=== PATIENT | female | born 1960 | race Hispanic/Latino ===

== ENCOUNTER 2024-10-16 05:25 | Observation (INO) | payer OTHER ==
[2024-10-14 15:45] LABS: BASOPHILS % 0.6 % (0.0-1.0); EOSINOPHILS % 2.0 % (0.0-6.0); LYMPHOCYTES % 21.4 % (18.0-39.1); MONOCYTES % 9.7 % (4.4-11.3); NEUTROPHILS % 66.1 % (38.7-80.0); RED CELL DISTRIBUTION WIDTH 12.7 % (11.7-14.4)
[~2024-10-16 05:25] MED LIST: AMLODIPINE BESY10 MG PO; HYDROXYZINE HCL10 MG PO; LEXAPRO20 MG PO; LOSARTAN POTASS25 MG PO; METOPROLOL TAR100 MG PO; SIMVASTATIN20 MG PO
[2024-10-16] MEDS: LACTATED RINGER'S 1,000 ML ONE (06:15)
[2024-10-16] MEDS: CEFAZOLIN SODIUM 2 GM ONE (06:15)
[2024-10-16] MEDS ORDERED: LIDOCAINE HCL 2% LOCAL INJ 5 ML SDV VIAL INJ ONE (06:41)
[2024-10-16] MEDS ORDERED: FENTANYL CITRATE/PF 100MCG/2 ML INJ ONE ×2 (06:41→06:44)
[2024-10-16] MEDS ORDERED: PROPOFOL IV EMULSION 10 MG/ML 20 ML VIAL ONE (06:41)
[2024-10-16] MEDS ORDERED: SEVOFLURANE INHAL SOLN 250 ML PEN BTL ONE (06:41)
[2024-10-16] MEDS ORDERED: ROCURONIUM BROMIDE 1 ML IV ONE (06:41)
[2024-10-16] MEDS ORDERED: ACETAMINOPHEN 1000 MG/100 ML 100 ML IV ONE (06:41)
[2024-10-16] MEDS ORDERED: BUPIVACAINE 0.25% 30ML SDV ONE (06:44)
[2024-10-16] MEDS ORDERED: MIDAZOLAM HCL 2 MG/2 ML VIAL ONE (06:45)
[2024-10-16] MEDS ORDERED: HYDROCODONE/APAP 7.5MG-325MG 1 EA TAB PO PRN (07:00)
[2024-10-16] MEDS ORDERED: DOCUSATE SODIUM 100 MG CAP PO PRN ×2 (07:00→14:15)
[2024-10-16] MEDS ORDERED: ONDANSETRON HCL INJ 2MG/ML 2ML 2 MG/ML VIAL IV PRN ×2 (07:00→14:15)
[2024-10-16] MEDS ORDERED: FAMOTIDINE 20 MG/2 ML VIAL IV ONE (07:09)
[2024-10-16] MEDS ORDERED: DEXAMETHASONE SOD PHOS INJ 4 MG/ML SDV ONE (07:09)
[2024-10-16] MEDS ORDERED: EPHEDRINE SULFATE INJ 50 MG/ML VIAL ONE (07:14)
[2024-10-16] MEDS ORDERED: ROPIVACAINE/EPI/CLONIDINE/KET 50 ML SYRINGE INJ ONE (08:00)
[2024-10-16] MEDS ORDERED: SUGAMMADEX SODIUM 200 MG/2 ML VIAL IV ONE (08:02)
[2024-10-16] MEDS ORDERED: LACTATED RINGER'S 1,000 ML ONE (08:03)
[2024-10-16] MEDS: HYDROMORPHONE 1MG/1ML INJ ONE (09:13)
[2024-10-16] MEDS: HYDROCODONE/APAP 7.5MG-325MG 1 EA TAB ONE (10:00)
[2024-10-16] MEDS ORDERED: BENZONATATE 100 MG CAP PO PRN (14:15)
[2024-10-16] MEDS ORDERED: SIMETHICONE 80 MG CHEW PO PRN (14:15)
[2024-10-16] MEDS ORDERED: DIPHENHYDRAMINE HCL 25 MG CAP PO PRN (14:15)
[2024-10-16] MEDS ORDERED: ACETAMINOPHEN 325 MG TAB PO PRN (14:15)
[2024-10-16] MEDS ORDERED: POTASSIUM CHLORIDE 20 MEQ TAB CR PO PRN (14:15)
[2024-10-16] MEDS ORDERED: HYDRALAZINE HCL 20 MG/ML VIAL IV PRN (14:15)
[2024-10-16] MEDS ORDERED: ALBUTEROL/IPRATROPIUM 3 ML NEB NEB PRN (14:15)
[2024-10-16] MEDS ORDERED: DEXTROSE 50% SYRINGE 50 ML IV PRN (14:15)
[2024-10-16] MEDS ORDERED: HYDROCODONE/APAP 5MG-325MG TAB PO PRN (14:45)
[2024-10-16] MEDS ORDERED: Morphine 4mg INJECTION 4 MG/ML INJ IV PRN (14:45)
[2024-10-16 15:00] VITALS: BP 116/78; PULSE 61; RESP 18; TEMP 98.2; O2SAT 99
[2024-10-16 15:34] VITALS: PULSE 71; RESP 20; O2SAT 97
[2024-10-16 16:10] LABS: EST GLOMERULAR FILTRATION RATE 103.0 ML/MIN (>=60)
[2024-10-16 16:13] VITALS: BP 111/75; PULSE 58; RESP 19; TEMP 97.3; O2SAT 100
[2024-10-16] MEDS: ENOXAPARIN SOD INJ 40 MG/0.4 ML SYR SC SCH (17:24)
[2024-10-16] MEDS: KETOROLAC TROMETHAMINE 30 MG/ML VIAL IV SCH (17:25)
[2024-10-16] MEDS: ASPIRIN 81 MG ENTERIC COATED PO SCH (17:26)
[2024-10-16] MEDS: CELECOXIB 100 MG CAP PO SCH (17:26)
[2024-10-16 20:06] VITALS: BP 116/68; PULSE 70; RESP 18; TEMP 98; O2SAT 100
[2024-10-16 22:00] VITALS: BP 116/68; PULSE 70; RESP 18; TEMP 98; O2SAT 100
[2024-10-16] MEDS: GABAPENTIN 300 MG CAP PO SCH (22:15)
[2024-10-16] MEDS: HYDROCODONE/APAP 10MG-325MG TAB PO PRN (22:21)
[2024-10-16] MEDS: DEXAMETHASONE PHOS 4MG/ML 5ML MULTIDOSE VIAL IV ONE (22:24)
[2024-10-16 23:35] VITALS: BP 111/73; PULSE 74; RESP 18; TEMP 98.2; O2SAT 99
[2024-10-17 04:01] VITALS: BP 116/75; PULSE 70; RESP 20; TEMP 97.9; O2SAT 100
[2024-10-17 06:09] LABS: BASOPHILS % 0.1 % (0.0-1.0); EOSINOPHILS % 0.0 % (0.0-6.0); LYMPHOCYTES % 9.3 % (18.0-39.1); MONOCYTES % 8.5 % (4.4-11.3); NEUTROPHILS % 81.7 % (38.7-80.0); RED CELL DISTRIBUTION WIDTH 12.5 % (11.7-14.4)
[2024-10-17 06:31] LABS: EST GLOMERULAR FILTRATION RATE 103.0 ML/MIN (>=60)
[2024-10-17 07:38] VITALS: PULSE 76; RESP 20; O2SAT 98
[2024-10-17 08:00] VITALS: BP 124/70; PULSE 81; RESP 18; TEMP 98.1; O2SAT 100
[2024-10-17 09:00] VITALS: BP 124/70; PULSE 81; RESP 18; TEMP 98.1; O2SAT 100
[2024-10-17] MEDS: PANTOPRAZOLE SOD 40 MG TABEC PO SCH (09:29)
[2024-10-17] MEDS ORDERED: ASPIRIN EC81 MG PO (09:36)
[2024-10-17 12:00] VITALS: BP 110/73; PULSE 80; RESP 18; TEMP 98.5; O2SAT 100
[2024-10-17] MEDS ORDERED: METOPROLOL TARTRATE 50 MG TAB PO SCH (17:00)
[2024-10-17] MEDS ORDERED: SIMVASTATIN 20 MG TAB PO SCH (21:00)
[2024-10-17] MEDS ORDERED: GABAPENTIN 300 MG CAP PO SCH (22:00)
[2024-10-18] MEDS ORDERED: LOSARTAN POTASSIUM 25 MG TAB PO SCH (09:00)
[2024-10-18] MEDS ORDERED: ESCITALOPRAM OXALATE 10 MG TAB PO SCH (09:00)
[2024-10-18] MEDS ORDERED: AMLODIPINE BESYLATE 10 MG TAB PO SCH (09:00)
== END 2024-10-17 12:30 | disposition home or self-care (01) ==
LOC: OR 05:25 → PACU V 13:30 → MED/SURG3 14:26
PROVIDERS: ADMIT Orthopaedic Surgery Adult Reconstructive Orthopaedic Surgery; ATTEND Orthopaedic Surgery Adult Reconstructive Orthopaedic Surgery
DX: M16.12 Unilateral primary osteoarthritis, left hip (principal); I10 Essential (primary) hypertension; F41.8 Other specified anxiety disorders; Z01.810 Encounter for preprocedural cardiovascular examination; Z01.812 Encounter for preprocedural laboratory examination
CPT/HCPCS: 27130; 36415 ×3; 72170; 80048 ×2; 85025 ×2; 86850; 86900; 93005; 94799 ×2; 97116 ×3; 97161; 97530 ×3; C1713 ×3; C1776 ×3; G0378 ×2; J0131; J0690 ×2; J1100; J1171; J1308; J1650; J1885 ×2; J2003; J2250; J2405; J2470; J2704; J3010; J7121